=== PATIENT | male | born 2000 | race Caucasian/White ===

== ENCOUNTER 2021-08-19 14:22 | Emergency (ER) | payer OTHER, SELFPAY ==
[2021-08-19 14:28] VITALS: BP 140/70; PULSE 105; O2SAT 98
[2021-08-19 14:30] VITALS: BP 142/62; PULSE 84; PULSE 89; RESP 16; RESP 17; TEMP 36.4; TEMP 36.5; O2SAT 92; O2SAT 96; BMI 24.3
--- NOTE | 2021-08-19 14:30 | ED_ITS ---
HPI - Psych General Chief Complaint: ETOH/Substance Use Stated Complaint: used drugs Time Seen by Provider: 08/19/21 14:29 Source: patient Mode of arrival: EMS Limitations: no limitations History of Present Illness HPI Narrative: smoked 2 bags of heroin - found in car no trauma no SI - did not receive narcan offered here or police custody complaint: substance abuse Onset (ago): minute(s) Duration: intermittent History of same: Yes Relieving factors: none Exacerbating factors: drug use Context: recent drug abuse Associated psychiatric symptoms: none Associated symptoms: denies other symptoms Treatments prior to arrival: none Related Data Allergies Allergy/AdvReac Type Severity Reaction Status Date / Time No Known Allergies Allergy Verified 08/19/21 14:35 Review of Systems Review of Systems: Constitutional : No Weight loss, No Fever, No Chills, No Fatigue, No Malaise ENT/Mouth : No sore throat, No Rhinorrhea Eyes: No Eye Pain, No Swelling, No Redness Cardiovascular : No Chest Pain, No SOB, No Dyspnea on Exertion, No Orthopnea, No Edema, No Palpitations Respiratory : No Cough, No Sputum, No Wheezing Gastrointestinal : No Nausea, No Vomiting, No Diarrhea, No Constipation, No abdominal Pain, No Hematochezia, No Melena Genitourinary : No Dysuria, No Urinary Frequency, No Hematuria, Musculoskeletal : No joint pain, No Myalgias, No Joint Swelling Skin : No Skin Lesions, No rash Neuro : No Weakness, No Numbness, No Dizziness, No Headache Psych : No Anxiety/Panic, No Depression All other systems reviewed and are negative [facility] Past Medical History Attestation statement: The following information was validated with the patient. Medical History (Updated 08/19/21 @ 14:43 by Sarah Rodriguez DO) Opiate abuse, episodic Social History Social History (Updated 08/19/21 @ 14:37 by Sarah Rodriugez DO) Patient Tobacco Use Status: Current everyday Tobacco user Substance Use Type: Heroin Advance Directives: No Advance Directives Information Provided: No Physical Exam Vital Signs: Vital Signs: Last Vital Signs Temp 97.5 F 08/19/21 14:30 Pulse 84 08/19/21 14:30 Resp 16 08/19/21 14:30 BP 142/62 H 08/19/21 14:30 Pulse Ox 96 08/19/21 14:30 BMI result Body Mass Index 24.3 Appearance: Alert. Oriented X3. No acute distress. Pleasant Eyes: Pupils equal, round and reactive to light. ENT: Pharynx normal. Neck: Normal inspection. Neck supple. CVS: Normal heart rate and rhythm. Pulses normal. Respiratory: No respiratory distress. Breath sounds normal. Abdomen: Soft and nontender. Skin: Skin warm and dry. Normal skin color. Normal skin turgor. Extremities: No lower extremity edema. No calf ttp Neuro: Oriented X 3. No motor deficit. No sensory deficit. Course Course Course Narrative: patient awake, does not want to stay has ride home MDM - Psych MDM Narrative Medical decision making narrative: 21 yo male pleasant here with opiate use disorder - no need for narcan, does agree to stay for observation, given narcan to take home - aware we have suboxone program here given information for suboxone. Plans to call suboxone clinic does not want detox Discharge Plan Discharge Clinical Impression: Opiate dependence Qualifiers: Substance use status: uncomplicated Qualified Code(s): F11.20 - Opioid dependence, uncomplicated Patient Disposition: Home, Self-Care Instructions: Opioid Use Disorder (ED) Additional Instructions: return to ED for any worsening symptoms or concerns please follow up with the number given to you for our suboxone clinic ([facility]) carry narcan with you at all times
[2021-08-19] MEDS: Naloxone HCl Nasal TAKE HOME 4 MG SPRAY NOSTRILALT (14:37)
== END 2021-08-19 15:17 | disposition home or self-care (01) ==
LOC: HO.ED 14:45
PROVIDERS: Emergency Provider Emergency Medicine
DX: F11.20 Opioid dependence, uncomplicated (principal); F17.200 Nicotine dependence, unspecified, uncomplicated
CPT/HCPCS: 99282; 99283